=== PATIENT | male | born 1990 | race Caucasian/White ===

== ENCOUNTER 2019-09-14 14:31 | Emergency (ER) | payer OTHER ==
[~2019-09-14] VITALS: Ht 182.9 cm; Wt 99.8 kg
[2019-09-14 17:03] VITALS: BP 157/113
== END 2019-09-14 17:07 | disposition left against medical advice (07) ==
LOC: M.ERS 14:31
DX: Z53.21 Procedure and treatment not carried out due to patient leaving prior to being seen by health care provider (principal)